=== PATIENT | male | born 1960 | race Caucasian/White ===

== ENCOUNTER 2017-08-03 12:42 | Emergency (ER) | payer BC ==
--- NOTE | 2017-08-03 13:15 | EDM.PDOC ---
ED HPI GENERAL MEDICAL PROBLEM - General Source of Information: Reports: Patient, Family, RN, RN Notes Reviewed History Limitations: Reports: Altered Mental Status - History of Present Illness Onset: Today Onset Time: 09:30 Location: Reports: Head Quality: Reports: Ache Severity: Mild Improves with: Reports: None Worsens with: Reports: None Associated Symptoms: Reports: Confusion Left Chest Pain Score (Numeric/FACES): 5 - General Stated Complaint: HIGH BLOOD PRESSURE Time Seen by Provider: 08/03/17 13:05 - History of Present Illness INITIAL COMMENTS - FREE TEXT/NARRATIVE: All is a 56 yo male who presents to the ED with complaints of altered mental status. relates that he noticed the change in mentation at 0930 when he was sitting up in a chair. Reports that she noticed his face twitching and when she talked to him he did not make sense. She took his blood pressure at him and noticed that it was 167/95. Reports that he has taken blood pressure medications this am. Patient reports generalized headache since this am with blurred vision. (Elen Rosenberg) - Related Data Allergies Allergy/AdvReac Type Severity Reaction Status Date / Time No Known Allergies Allergy Verified 08/03/17 12:59 Past Medical History Cardiovascular History: Reports: High Cholesterol, Hypertension Endocrine/Metabolic History: Reports: Hypothyroidism Social & Family History - Tobacco Use Smoking Status *Q: Never Smoker - Alcohol Use Alcohol Use Frequency: Daily (Relates 4 glasses of wine per night) ED ROS GENERAL - Review of Systems Review Of Systems: ROS reveals no pertinent complaints other than HPI. - Physical Exam Exam: See Below Exam Limited By: Altered Mental Status General Appearance: Alert, WD/WN, No Apparent Distress Eye Exam: Bilateral Eye: EOMI, PERRL, Vision Changes Ears: Normal External Exam, Normal Canal, Hearing Grossly Normal, Normal TMs Nose: Normal Inspection, Normal Mucosa, No Blood Throat/Mouth: Normal Inspection, Normal Teeth, Normal Gums, Normal Oropharynx, Normal Voice, No Airway Compromise, Other (Mild right sided facial droop noted) Head Exam: Atraumatic, Normocephalic Neck: Normal Inspection, Supple, Non-Tender, Full Range of Motion Respiratory/Chest: No Respiratory Distress, Lungs Clear, Normal Breath Sounds, No Accessory Muscle Use, Chest Non-Tender Cardiovascular: Normal Peripheral Pulses, Regular Rate, Rhythm, No Edema, No Gallop, No JVD, No Murmur, No Rub GI/Abdominal: Normal Bowel Sounds, Soft, Non-Tender, No Organomegaly, No Distention, No Abnormal Bruit, No Mass (Male) Exam: Deferred Rectal (Males) Exam: Deferred Neuro Exam (Abbreviated): Alert (Mild facial droop noted to the right other cranial nerves grossly intact. ), Oriented, Normal Reflexes, No Motor/Sensory Deficits, Other (Expressive aphasia noted. Patient has difficulty finding words. ) Back Exam: Normal Inspection, Full Range of Motion, NT Extremities: Normal Inspection, Normal Range of Motion, Non-Tender, No Pedal Edema, Normal Capillary Refill Psychiatric: Tearful Skin Exam: Warm, Dry, Intact, Normal Color, No Rash EKG INTERPRETATION EKG Date: 08/03/17 Time: 13:05 Rhythm: NSR Rate (Beats/Min): 79 [place]: Normal P-Wave: Present QRS: Normal ST-T: Normal QT: Normal Comparison: NA - No Prior EKG - Vital Signs Last Recorded V/S: Last Vital Signs Temp 37.1 C 08/03/17 13:01 Pulse 88 08/03/17 13:01 Resp 18 08/03/17 13:01 BP 184/93 H 08/03/17 13:01 Pulse Ox 99 08/03/17 13:01 - Orders/Labs/Meds Orders: Active Orders 24 hr Category Date Time Status EKG Documentation Completion [RC] URGENT Care 08/03/17 13:03 Active Labs: Laboratory Tests 08/03/17 08/03/17 08/03/17 Range/Units 13:09 13:10 13:31 WBC 10.5 H (5.0-10.0) 10^3/uL RBC 5.20 (4.6-6.2) 10^6/uL Hgb 14.9 (14.0-18.0) g/dL Hct 43.7 (40.0-54.0) % MCV 84.0 (80-100) fL MCH 28.7 (27.0-34.0) pg MCHC 34.1 (33.0-35.0) g/dL Plt Count 200 (150-450) 10^3/uL Neut % (Auto) 69.3 (42.2-75.2) % Lymph % (Auto) 22.8 (20.5-50.1) % [place] % (Auto) 7.1 (2-8) % Eos % (Auto) 0.6 L (1.0-3.0) % Baso % (Auto) 0.2 (0.0-1.0) % PT 10.6 (9.0-12.0) SEC INR 1.1 (0.9-1.2) Sodium (135-145) mmol/L Potassium (3.6-5.0) mmol/L Chloride (101-111) mmol/L Carbon Dioxide (21.0-31.0) mmol/L Anion Gap BUN (7-18) mg/dL Creatinine (0.6-1.3) mg/dL Est Cr Clr Drug Dosing mL/min Estimated GFR (MDRD) BUN/Creatinine Ratio Glucose (74-105) mg/dL POC Glucose 91 (70-105) mg/dl Calcium (8.4-10.2) mg/dl Total Bilirubin (0.2-1.0) mg/dL AST (10-42) IU/L ALT (10-60) IU/L Alkaline Phosphatase (42-121) IU/L Troponin I (0.00-0.02) ng/ml Total Protein (6.7-8.2) g/dl Albumin (3.2-5.5) g/dl Globulin Albumin/Globulin Ratio /14/18 Range/Units 13:31 WBC (5.0-10.0) 10^3/uL RBC (4.6-6.2) 10^6/uL Hgb (14.0-18.0) g/dL Hct (40.0-54.0) % MCV (80-100) fL MCH (27.0-34.0) pg MCHC (33.0-35.0) g/dL Plt Count (150-450) 10^3/uL Neut % (Auto) (42.2-75.2) % Lymph % (Auto) (20.5-50.1) % [place] % (Auto) (2-8) % Eos % (Auto) (1.0-3.0) % Baso % (Auto) (0.0-1.0) % PT (9.0-12.0) SEC INR (0.9-1.2) Sodium 137 (135-145) mmol/L Potassium 4.0 (3.6-5.0) mmol/L Chloride 104 (101-111) mmol/L Carbon Dioxide 25.0 (21.0-31.0) mmol/L Anion Gap 12.0 BUN 16 (7-18) mg/dL Creatinine 0.9 (0.6-1.3) mg/dL Est Cr Clr Drug Dosing 104.02 mL/min Estimated GFR (MDRD) > 60 BUN/Creatinine Ratio 17.77 Glucose 89 (74-105) mg/dL POC Glucose (70-105) mg/dl Calcium 9.3 (8.4-10.2) mg/dl Total Bilirubin 1.0 (0.2-1.0) mg/dL AST 33 (10-42) IU/L ALT 31 (10-60) IU/L Alkaline Phosphatase 66 (42-121) IU/L Troponin I < 0.02 (0.00-0.02) ng/ml Total Protein 7.8 (6.7-8.2) g/dl Albumin 4.1 (3.2-5.5) g/dl Globulin 3.7 Albumin/Globulin Ratio 1.11 Meds: Medications Discontinued Medications Generic Name Dose Route Start Last Admin Trade Name Freq PRN Reason Stop Dose Admin Alteplase, Recombinant 89 mg 08/03/17 14:15 Activase IV .[facility]ION [facility] Alteplase, Recombinant 9 mg 08/03/17 14:12 08/03/17 14:22 Activase IVPUSH 08/03/17 14:13 9 mg .BOLUS ONE Administration Alteplase, Recombinant 81 mg 08/03/17 14:15 08/03/17 14:23 Activase IV 81 mg .INFUSION HAYLEY Administration Departure - Departure Time of Disposition: 14:23 Condition: Serious - Departure Disposition: DC/Tfer to Acute Hospital 02 Clinical Impression: Ischemic stroke - Discharge Information Referrals: Chito Randolph MD [Primary Care Provider] - Forms: ED Department Discharge Care Plan Goals: Discussed patient with Dr Ramires at [facility] and recommended transfer to [place]. [facility] called and talked to Dr Mancini. Recommended to give Alteplase and he would accept the patient. Discussed lab, CT, and assessment findings with patient and . Agreed to transfer at this time. - My Orders Last 24 Hours: My Active Orders 08/03/17 13:03 EKG Documentation Completion [RC] URGENT - Assessment/Plan Last 24 Hours: My Active Orders 08/03/17 13:03 EKG Documentation Completion [RC] URGENT
--- NOTE | 2017-08-03 13:25 | CT ---
Clinical history: 56-year-old male presents emergency department with altered mentation. Scan technique: Volume acquisition of data emergency unenhanced CT scan of the head and brain obtaine d while the patient was lying supine on the Siemens multi slice scanner [place], [place]. All data archived in the PACS system for storage and study (bone/brain windows). Interpretation: 1. Mucoperiosteal inflammatory thickening maxillary antrum on the right. Symmetric clear pneumatizati on of the frontal, ethmoid, left maxillary and sphenoid sinuses. Mastoid sinuses clear and unremarkab le. Normal TMJs. 2. Uniform and thick bony calvarium without sign of skull fracture, underlying brain contusion or epi dural/subdural hematoma. 3. Symmetric pan-white matter pattern with underlying mirror-image normal ventricular system. Physio logic midline pineal and symmetric choroid plexus calcifications. 4. No supratentorial or posterior fossa mass lesion. Cerebellum and brainstem unremarkable. 5. No focal areas of ischemic infarct or signs of acute intracerebral/intraventricular/subarachnoid b leed. CONCLUSION: Negative emergency unenhanced CT scan head and brain.
--- NOTE | 2017-08-03 13:55 | CR ---
CLINICAL HISTORY: 56-year-old male with altered mentation ("negative" CT scan head). INTERPRETATION: Sternotomy wires and external equipment monitor phototypesetting leads. Normal cardiac silhouette without new signs of alveolar edema or dependent pleural effusion. No new lung mass, hilar lymphadenopathy or focal lobar pneumonia. No atelectasis/collapse or pneumoth orax. CONCLUSION: No acute new cardiopulmonary abnormality since January 2013 exam. (Interval sternotomy) .
[2017-08-03 14:02] LABS: CHLORIDE,CL 104 mmol/L (101-111); SODIUM,NA 137 mmol/L (135-145)
== END 2017-08-03 15:10 ==
LOC: DL.ED 12:42
DX: I63.9 Cerebral infarction, unspecified (principal); I10 Essential (primary) hypertension; E03.9 Hypothyroidism, unspecified
CPT/HCPCS: 36415; 70450; 71045; 80053; 82962; 84484; 85025; 85610; 93005; 96365; 96374; 99285; J2997